=== PATIENT | female | born 1985 | race American Indian/Alaskan Native ===

== ENCOUNTER 2017-08-10 18:23 | Emergency (ER) | payer OTHER, BC ==
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
[2017-08-10 20:28] VITALS: BP 144/77; PULSE 82; RESP 17; TEMP 98.2; O2SAT 100
== END 2017-08-10 20:27 | disposition home or self-care (01) ==
LOC: ED 18:23
DX: M79.1 Myalgia (principal); M54.5 Low back pain; M54.2 Cervicalgia; R51 Headache
CPT/HCPCS: 96372; 99284; J1885